=== PATIENT | female | born 1990 | race African-American/Black ===

== ENCOUNTER 2017-03-12 14:17 | Emergency (ER) | payer OTHER ==
[2017-03-12 14:36] VITALS: BP 110/64; PULSE 65; TEMP 97.6; BMI 24.0
--- NOTE | 2017-03-12 14:40 | PDOC ---
History of Present Illness <Dago Sirera - Last Filed: 03/12/17 14:41> - General History Source: Patient Exam Limitations: No Limitations - History of Present Illness Initial Comments: 03/12/17 15:05 Patient is a 26 year old female with a significant past medical with polysubstance abuse who presents to the ED via EMS found unresponsive and hypoglycemic to BGM of 50. Patient was found to have oral glucose as per EMS with improvement of her sypmtoms. Patient was found to be 112 BGM, awake and alert in the ED. Patient states something happened I was just [place] I dont know what happened. Patient reports smoking a joint before. She denies any drug use or medical problems. Patient is walking around the ED talking to herself and noting that she is feeling better and wants to go home because she actually feels fine. pt denies any chest pain, sob, abd pain, n/v, dizziness, headache, neck pain, diarrhea, dysuria, melena, bpr. PCP - Dr Nieves <Aline Rivero - Last Filed: 03/12/17 16:32> - General Chief Complaint: Blood Pressure Problem Stated Complaint: HYPOGLYCEMIA Past History - Past Medical History Suicide Attempt (Hx): No Other medical history: DENIES - Immunization History Immunization Up to Date: Yes - Psycho/Social/Smoking Cessation Hx Anxiety: No Suicidal Ideation: No Smoking Status: No Smoking History: Unknown if ever smoked Have you smoked in the past 12 months: No Number of Cigarettes Smoked Daily: 2 Information on smoking cessation initiated: No 'Breaking Loose' booklet given: 03/03/16 Hx Alcohol Use: No Drug/Substance Use Hx: No Substance Use Type: None Hx Substance Use Treatment: No <Dago Sierra - Last Filed: 03/12/17 14:41> <Aline Rivero - Last Filed: 03/12/17 16:32> - Past Medical History Allergies/Adverse Reactions: Allergies Allergy/AdvReac Type Severity Reaction Status Date / Time No Known Allergies Allergy Verified 07/22/16 16:21 Home Medications: Ambulatory Orders NK [No Known Home Medication] 07/22/16 Review of Systems - Review of Systems Able to Perform ROS?: No Comments:: 03/12/17 15:06 Constitutional - no reported Fever, Chills, weakness, HEENT: no reported vision changes, sore throat Respiratory: no reported cough, sob, hemoptysis Cardiac: no reported chest pain, palpitations, light headedness, leg swelling Abd/GI: no reported abd pain, nausea, vomiting, blood per rectum, melena, diarrhea : no reported dysuria, frequency, discharge Musculskelatal - no reported back pain, joint swelling skin - no reported bruising, erythema, rash neurological: no reported headache, numbness, focal weakness, tingling, ataxia, weakness hematologic: no reported anemia, easy bruising, easy bleeding <Aline Rivero - Last Filed: 03/12/17 16:32> *Physical Exam - Vital Signs Last Vital Signs Temp Pulse Resp BP Pulse Ox 97.6 F 65 20 110/64 100 03/12/17 14:29 03/12/17 14:29 03/12/17 14:29 03/12/17 14:29 03/12/17 14:29 <Dago Sierra - Last Filed: 03/12/17 14:41> - Vital Signs Last Vital Signs Temp Pulse Resp BP Pulse Ox 97.6 F 65 20 110/64 99 03/12/17 14:29 03/12/17 14:56 03/12/17 14:29 03/12/17 14:29 03/12/17 14:56 - Physical Exam Comments: 03/12/17 15:07 GENERAL: The patient is awake, alert, and fully oriented, Nontoxic - in no acute distress. HEAD: Normocephalic, atraumatic. EYES: extraocular movements intact, sclera anicteric, conjunctiva clear. pupils 3mm and symmetrically reactive to light. ENT: Normal voice, Moist mucous membranes. NECK: Normal range of motion, supple LUNGS: Breath sounds equal, clear to auscultation bilaterally. No wheezes, no rhonchi, no rales. HEART: Regular rate and rhythm, normal S1 and S2 without murmur, rub or gallop. ABDOMEN: Soft, nontender, normoactive bowel sounds. No guarding, no rebound. . No CVA tenderness EXTREMITIES: Normal range of motion, no edema. No clubbing or cyanosis. No cords, erythema, or tenderness. NEUROLOGICAL: No facial assymetry, Normal speech, PSYCH: Normal mood, normal affect. SKIN: Warm, Dry, normal turgor <Aline Rivero - Last Filed: 03/12/17 16:32> ED Treatment Course - ADDITIONAL ORDERS Additional order review: Laboratory Results 03/12/17 14:27 POC Glucometer [id number] 03/12/17 14:27 POC Glucometer [id number] <Aline Rivero - Last Filed: 03/12/17 16:32> Medical Decision Making - Medical Decision Making 03/12/17 14:41 pt with hx of substance abuse presents with hypoglycemia - per EMS the pt was found altered, was noted to have BGM of 50, she got some oral glucose with improvement of her mental status. the pt is currently aox3, with normal vitals and unrearkable physcial exam. The pt is ambulatory with a normal gait. i suspect the pt may have used drugs earlier (although the patient denies it and is a bit evasive). the pt declines any workup here. will sign the pt out AMA, the pt is alert/oriented, and responding appropriately repeat bgm is 122 here pt is tolerating oral intake she is a safe discharge. I discussed the physical exam findings, ancillary test results and final diagnoses with the patient. I answered all of the patient's questions. The patient was satisfied with the care received and felt comfortable with the discharge plan and treatment plan. The patient will call their primary care physician within 24 hours to arrange follow-up and will return to the Emergency Department with any new, persistent or worsening symptoms. 03/12/17 14:43 A portion of this note was documented by scribe services under my direction. I have reviewed the details of the note, within reason, and agree with the documentation with the following case summary and management plan written by me <Dago Sierra - Last Filed: 03/12/17 14:41> *DC/Admit/Observation/Transfer - Discharge Dispostion Admit: No <Dago Sierra - Last Filed: 03/12/17 14:41> - Attestations Scribe Attestion: 03/12/17 15:07 Documentation prepared by LIZZ Cooper, acting as director medical for Dago Sierra MD. <Aline Rivero - Last Filed: 03/12/17 16:32> Diagnosis at time of Disposition: Substance abuse - Discharge Dispostion Disposition: HOME Condition at time of disposition: Improved - Referrals Referrals: Byron Nieves [Non Staff, Medical] - - Patient Instructions Printed Discharge Instructions: DI for Drug Abuse and Drug Addiction Additional Instructions: You are leaving against medical advice If you want to return for further evlauation , you can do so at any time. Print Language: GIBRALTARIAN
== END 2017-03-12 15:00 | disposition home or self-care (01) ==
LOC: JER 14:17
DX: E16.1 Other hypoglycemia (principal); F19.10 Other psychoactive substance abuse, uncomplicated
CPT/HCPCS: 99282-25

== ENCOUNTER 2017-11-04 22:33 | Inpatient (IN) | payer OTHER ==
[2017-11-04] MEDS ORDERED: morphine SULFATE/Preservative Free 0.5 MG/ML (1cc Syringe) ONE (23:17)
[2017-11-04 23:28] LABS: BASO % 0.5 % (0-2.0); EOS % 0.9 % (0-4.5); MCH 32.7 pg (25.7-33.7); MCHC 32.9 g/dl (32.0-36.0); MEAN CELL VOLUME 99.4 fl (80-96); MEAN PLT VOLUME 10.8 fl (7.5-11.1); NEUT % 67.5 % (42.8-82.8); PLATELET COUNT 169 K/MM3 (134-434); RDW 14.3 % (11.6-15.6); WHITE BLOOD COUNT 8.5 K/mm3 (4.0-10.0)
[2017-11-04 23:42] LABS: INR 0.91 (0.82-1.09); PROTHROMBIN TIME (PATIENT) 10.3 SEC (9.98-11.88)
[2017-11-04 23:45] LABS: ACTIVATED PTT 26.4 SECONDS (26.9-34.4)
[2017-11-04 23:55] LABS: ALBUMIN 2.3 g/dl (3.4-5.0); ANION GAP 12 (8-16); CALCIUM 8.4 mg/dL (8.5-10.1); CO2 21 mmol/L (21-32); CREATININE 0.6 mg/dL (0.55-1.02); GLUCOSE,RANDOM 115 mg/dL (74-106); SGOT/AST 20 U/L (15-37); SGPT/ALT 16 U/L (12-78)
[2017-11-04 23:57] LABS: ALK PHOS 167 U/L (45-117); BILIRUBIN,TOTAL 0.4 mg/dL (0.2-1.0); TOT PROT 5.9 g/dl (6.4-8.2)
[2017-11-05 00:01] LABS: URINE APPEARANCE CLOUDY; URINE BILIRUBIN NEGATIVE (NEGATIVE); URINE BLOOD 3+ (NEGATIVE); URINE COLOR DKYELLOW; URINE GLUCOSE (UA) 1+ (NEGATIVE); URINE KETONE TRACE (NEGATIVE); URINE NITRITE NEGATIVE (NEGATIVE); URINE UROBILINOGEN NEGATIVE mg/dL (0.2-1.0)
[2017-11-05 00:02] LABS: URINE LEUK ESTERASE 2+ (NEGATIVE); URINE PROTEIN 2+ (NEGATIVE)
[2017-11-05 00:10] LABS: URINE BACTERIA FEW /hpf (NONE SEEN); URINE HYALINE CAST 11 /lpf; URINE MUCUS MANY; URINE RBC 909 /hpf (0-3); URINE WBC 487 /hpf (3-5)
[2017-11-05] MEDS ORDERED: ONDANSETRON 4 MG/2 ML VIAL IVPUSH PRN (00:12)
[2017-11-05 00:20] LABS: HIV 1 & 2 AB NEGATIVE; HIV 1 AGp24 NEGATIVE
[2017-11-05] MEDS ORDERED: ceFAZolin SODIUM 1 GM VIAL ONE (00:25)
[2017-11-05 00:40] LABS: URINE MARIJUANA THC NEGATIVE ng/ml (CUTOFF=50)
[2017-11-05 01:10] LABS: ARTERIAL BLOOD GAS BASE EXCESS -5.5 meq/l (-2-2); ARTERIAL BLOOD GAS HCO3 23.3 meq/L (22-26)
[2017-11-05 01:14] LABS: ARTERIAL BLOOD GAS pH 7.19 (7.35-7.45)
[2017-11-05 01:15] LABS: ARTERIAL BLD GAS O2 SATURATION 35.9 % (90-98.9); ARTERIAL BLOOD GAS PO2 19.4 mmHg (80-100)
[2017-11-05 01:16] LABS: VENOUS BLOOD GAS HCO3 24.4 meq/L (19-25); VENOUS PH 7.32 (7.32-7.42)
--- NOTE | 2017-11-05 01:16 | HP ---
Past Medical History - Admission Chief Complaint: abdominal pain History of Present Illness: 26yo LMP 11/20/17 by horacio done here on 10/07/2017 brought in by ambulance with pain and vaginal bleeding. Pt reports care at [facility], but has scant to no care. Lives in skilled nursing and does not have a stable location. Pt reports that she did k2 this evening and crack/cocaine this morning. 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) Cardiovascular: No: AFIB, Aneurysm, Aortic Insufficiency, Aortic Stenosis, CAD, CHF, Deep Vein Thrombosis, HTN, Hyperlipdemia, [place], Mitral Insufficiency, Mitral Stenosis, Murmur, Pulmonary Hypertension, Other Pulmonary: No: Asthma, Bronchitis, Cancer, COPD, O2 Dependent, Pneumonia, Previously Intubated, Pulmonary Embolus, Pulmonary Fibrosis, Sleep Apnea, Other Gastrointestinal: No: Ascites, Cancer, Constipation, Crohn's Disease, Diverticulitis, Diverticulosis, Esophageal Varices, Gastritis, GERD, GI Bleed, Hemorrhoids, Hiatal Hernia, Inflamatory Bowel Disease, Irritable Bowel Disease, Pancreatitis, Peptic Ulcer Disease, Ulcerative Colitis, Other Reproductive: No: Ectopic , Endometriosis, Fibroids, PID, Polycystic Ovary Syndrome, Postmenopausal, Other ...: 3 ...Para: 2 ...Term: 2 ...: 0 ...Spon : 0 ...Induced : 0 ...Multiple Gestation: 0 ... Weeks Gestation by Dates: 37.5 Additional OB History: previous c/s x 2 Psych: Yes: Addictions - Past Surgical History Past Surgical History: Yes: (04/09/2015) Hx Myomectomy: No Hx Transabdominal Cerclage: No - Smoking History Smoking history: Current some day smoker Have you smoked in the past 12 months: No Aproximately how many cigarettes per day: 2 - Alcohol/Substance Use Hx Alcohol Use: No History of Substance Use: reports: Cocaine, Marijuana (synthetic) Date of Last Use: 11/04/17 - Social History Usual Living Arrangement: Yes: Other Home Medications - Allergies Allergies/Adverse Reactions: Allergies Allergy/AdvReac Type Severity Reaction Status Date / Time No Known Allergies Allergy Verified 07/22/16 16:21 - Home Medications Home Medications: Ambulatory Orders NK [No Known Home Medication] 07/22/16 Family Disease History - Family Disease History Family History: Unable to Obtain Review of Systems - Review of Systems Constitutional: reports: No Symptoms Eyes: reports: No Symptoms HENT: reports: No Symptoms Gastrointestinal: reports: Abdominal Pain Genitourinary: reports: Vaginal Bleeding Physical Exam - Maternity Constitutional: Yes: Well Nourished, No Distress, Calm Eyes: Yes: WNL, Conjunctiva Clear, EOM Intact HENT: Yes: WNL, Atraumatic, Normocephalic Neck: Yes: WNL, Supple, Trachea Midline Cardiovascular: Yes: WNL, Regular Rate and Rhythm - Abdominal Exam/OB Fundal Height: 36 Number of Fetuses: Single Presentation: Vertex Contractions: Yes Regularity: Regular Intensity: Mod/Strong Monitor Mode: External Heart Rate (range): 150 Heart Rate Location: [facility] Category: II Accelerations: None Decelerations: Variable - Vaginal Exam/OB Vaginal Bleediing: Yes Dilatation (cm): 10 Effacement (%): 100 Amniotic Membrane Status: Intact (AROM; copious amount of clear fluid;) Presentation: Vertex/Position Station: -2 - Physical Exam Musculoskeletal: Yes: WNL Extremities: Yes: WNL Integumentary: Yes: WNL - Labs Lab Results: CBC, BMP 11/04/17 23:06 11/04/17 23:06 Hemorrhage Risk Assessment - Risk Factors Medium Risk Factors: Yes: Prior , uterine surgery,or multiple laparotomies High Risk Factors: Yes: Active bleeding on admission Risk Score: 3 Risk Level: High Risk Problem List - Problems (1) Vaginal bleeding in Assessment/Plan: 26yo at 37.5 weeks with vaginal bleeding, active labor. Previous c/s x2. AROM performed. Attempted to have patient push a few times with no success. Decided to proceed with repeat c/s. risks or procedure including but not limited to bleeding, infection, damage to surrounding tissue, need for transfusion, need for hysterectomy. Consent signed. admit to L&D type and cross x 2 units plan for rpt c/s social work consultation; +drug use. Code(s): O46.90 - ANTEPARTUM HEMORRHAGE, UNSPECIFIED, UNSPECIFIED TRIMESTER
--- NOTE | 2017-11-05 01:26 | DS ---
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
--- NOTE | 2017-11-05 01:33 | OP ---
Operative Note - Note: Operative Date: 11/05/17 Pre-Operative Diagnosis: 2 previous c/s in labor; remote from delivery Operation: repeat c/s Findings: viable male infant APGARS 9, 9; placental abruption; uterine window, questionable uterine rupture Post-Operative Diagnosis: Other (repeat c/s; placental abruption, possible uterine rupture) Surgeon: Jolanta Isabel Plant Changer: Ra Baldwin Anesthesiologist/RAILROAD COOK: Jeff Figueredo Anesthesia: Spinal Specimens Removed: placenta Estimated Blood Loss (mls): 800 Operative Report Dictated: Yes
[2017-11-05] MEDS ORDERED: IBUPROFEN 600 MG TABLET (FP) PO PRN (01:37)
[2017-11-05] MEDS ORDERED: IBUPROFEN 800 MG/8 ML IJ IVPB PRN (01:37)
[2017-11-05] MEDS ORDERED: METHYLERGONOVINE MALEATE 0.2 MG/1 ML AMP IM PRN (01:37)
[2017-11-05] MEDS ORDERED: OXYTOCIN 20 UNITS in 0.9% NS 20 UNIT/1,000 ML INFUS.BAG IV ONE (01:38)
[2017-11-05 01:40] LABS: BASO % 0.8 % (0-2.0); EOS % 0.4 % (0-4.5); MEAN CELL VOLUME 99.9 fl (80-96); MEAN PLT VOLUME 10.7 fl (7.5-11.1); NEUT % 76.3 % (42.8-82.8); PLATELET COUNT 190 K/MM3 (134-434); RDW 14.6 % (11.6-15.6); WHITE BLOOD COUNT 8.9 K/mm3 (4.0-10.0)
[2017-11-05 01:48] LABS: INR 0.88 (0.82-1.09); PROTHROMBIN TIME (PATIENT) 9.9 SEC (9.98-11.88)
[2017-11-05 01:50] LABS: ACTIVATED PTT 28.4 SECONDS (26.9-34.4)
[2017-11-05 02:42] VITALS: BMI 26.6
[2017-11-05 02:56] LABS: PLATELET ESTIMATE NORMAL
[2017-11-05 02:59] LABS: PLATELET COMMENTS PRESENT
[2017-11-05] MEDS: OXYTOCIN 20 UNITS in 0.9% NS 20 UNIT/1,000 ML INFUS.BAG IV SCH ×2 (07:30→16:45)
[2017-11-05] MEDS: PRENATAL VITAMINS W/ FOLIC ACID TABLET (FP) PO SCH (09:47)
[2017-11-05] MEDS: FERROUS SO4 325 MG TABLET (FP) PO SCH ×2 (09:47→22:48)
[2017-11-05 13:12] LABS: URINE LEUK ESTERASE TRACE (NEGATIVE)
--- NOTE | 2017-11-05 13:18 | PN ---
Mental Health Exam - Mental Status Exam Alert and Oriented to: Time, Place, Person Cognitive Function: Impaired (delated in response. ) Patient Appearance: Unkempt, Disheveled (unkempt) Mood: Apathetic, Hopeful (where will i live with baby?, ) Affect: Appropriate Patient Behavior: Dependent, Cooperative Speech Pattern: Clear, Delayed (mild) Voice Loudness: Mildly Soft/Quiet Thought Process: Intact Thought Disorder: Not Present Hallucinations: None Suicidal Ideation: None Homicidal Ideation: None Insight/Judgement: Fair Sleep: Well Appetite: Good (eating all lunch as contract writer interviewed her. ) Muscle strength/Tone: Normal Gait/Station: Deferred
--- NOTE | 2017-11-05 13:27 | PN ---
Progress Note, Physician Chief Complaint: "when can i go home". - Current Medication List Current Medications: Active Medications Acetaminophen (Tylenol -) 650 mg PO Q4H PRN PRN Reason: FEVER OR PAIN Bisacodyl (Dulcolax Suppository -) 10 mg RC PRN PRN PRN Reason: CONSTIPATION Diphenhydramine HCl (Benadryl Injection -) 25 mg IVPUSH Q4H PRN PRN Reason: Pruritis Last Admin: 11/05/17 09:56 Dose: 25 mg Ferrous Sulfate (Feosol -) 325 mg PO BID [facility] Last Admin: 11/05/17 09:47 Dose: Not Given Oxytocin/Sodium Chloride (Normal Saline+20 Units Oxytocin -) 20 unit in 1,000 mls @ 125 mls/hr IV ASDIR [facility] Last Admin: 11/05/17 07:30 Dose: 125 mls/hr Ibuprofen (Motrin -) 600 mg PO Q4H PRN PRN Reason: PAIN Ibuprofen (Caldolor Injection -) 800 mg IVPB Q8H PRN PRN Reason: PAIN OR FEVER Last Admin: 11/05/17 10:01 Dose: 800 mg Methylergonovine Maleate (Methergine Injection -) 0.2 mg IM Q4H PRN PRN Reason: Excessive Bleeding (L&D) Ondansetron HCl (Zofran Injection) 4 mg IVPUSH Q4H PRN PRN Reason: NAUSEA Oxycodone HCl (Roxicodone -) 5 mg PO Q4H PRN PRN Reason: PAIN LEVEL 1-5 Multivit/Folic Acid/Iron ( Vitamins (Sjr) -) 1 tab PO DAILY [facility] Last Admin: 11/05/17 09:47 Dose: Not Given Simethicone (Mylicon -) 80 mg PO Q4H PRN PRN Reason: GAS - Objective Vital Signs: Vital Signs Temperature 98.9 F 11/05/17 13:00 Pulse Rate 73 11/05/17 08:10 Respiratory Rate 20 11/05/17 13:00 Blood Pressure 135/77 11/05/17 08:10 O2 Sat by Pulse Oximetry (%) 99 11/05/17 02:55 Labs: CBC, BMP 11/05/17 00:29 11/04/17 23:06 INR, PTT INR 0.88 (0.82-1.09) 11/05/17 00:29 Problem List - Problems (1) Drug abuse and dependence Code(s): F19.20 - OTHER PSYCHOACTIVE SUBSTANCE DEPENDENCE, UNCOMPLICATED Assessment/Plan client is 24 yo AA female has a c section last pm at 12.30 pm with spinal analgesia, last 16 hr per rn. Client is co-operative pleasant in room, interacts with business writer as she ate. Client stated "i was living at [facility] [address] [facility] when i got severe pains ( labor pains)." Client denies psych history or admissions. Recieved benadry last pm iv. No si Hi AH or VH. POS for cocaine and thenalylaline, K2? also. Denies Rehabs in past. Possible intellectual impaired , but stated she has some college, Cognitive decline? Stated her MOM is at [place], she is one of 6 sisters and 2 brothers. She wanted to know what her "living arrangement after DC". Acs came to see patient who is familar with her from previous births. Plan; Continue supportive care Encourage rehab, referral to substance clinic Social service consult recomended.. Review past medical/PSYCHES if possible. Report to both RN on floor. Contonue current meds. Thanks for consult.
--- NOTE | 2017-11-05 15:59 | PN ---
Progress Note (short form) - Note Progress Note: POD #1 - s/p repeat under spinal anesthesia with duramorph. VSS. Pt. doing well, resting comfortably in bed. No complaints. Good pain control. No apparent anesthetic complications noted. Continue current care.
[2017-11-06] MEDS: oxyCODONE HCL 5 MG TABLET PO PRN ×4 (00:54→22:14)
[2017-11-06] MEDS: SIMETHICONE 80 MG TAB.CHEW (FP) PO PRN ×4 (00:54→22:13)
[2017-11-06] MEDS: ACETAMINOPHEN 325 MG TABLET (FP) PO PRN ×4 (00:55→22:15)
[2017-11-06] MEDS ORDERED: BISACODYL 10 MG SUPP.RECT RC PRN (01:37)
[2017-11-06 08:05] LABS: BASO % 0.5 % (0-2.0); EOS % 0.8 % (0-4.5); MCH 32.9 pg (25.7-33.7); MCHC 32.8 g/dl (32.0-36.0); MEAN CELL VOLUME 100.3 fl (80-96); MEAN PLT VOLUME 10.3 fl (7.5-11.1); NEUT % 70.3 % (42.8-82.8); PLATELET COUNT 151 K/MM3 (134-434); RDW 14.7 % (11.6-15.6); WHITE BLOOD COUNT 9.4 K/mm3 (4.0-10.0)
[2017-11-06] MEDS: FERROUS SO4 325 MG TABLET (FP) PO SCH ×2 (10:11→22:13)
[2017-11-06] MEDS: PRENATAL VITAMINS W/ FOLIC ACID TABLET (FP) PO SCH (10:11)
[2017-11-06] MEDS: IBUPROFEN 600 MG TABLET (FP) PO PRN ×2 (13:37→22:14)
[2017-11-06] MEDS ORDERED: diphenhydrAMINE HCL 25 MG CAPSULE (FP) PO PRN (14:57)
[2017-11-06] MEDS: diphenhydrAMINE HCL 25 MG CAPSULE (FP) PO PRN (15:18)
--- NOTE | 2017-11-06 20:12 | PN ---
Progress Note (short form) - Note Progress Note: Called back by RN May Rudolph for client who was anxious for discharge earlier today. Patient is currently calm sleeping in her room. May use benadryl po prn as needed for itching/ anxious. Client is homless and will need SW assistance upon discharge, reconnect with services in the community. Problem List - Problems (1) Drug abuse and dependence Code(s): F19.20 - OTHER PSYCHOACTIVE SUBSTANCE DEPENDENCE, UNCOMPLICATED
--- NOTE | 2017-11-06 20:44 | OP ---
DATE OF OPERATION: 11/05/2017 PREOPERATIVE DIAGNOSIS: Previous section, in active labor, fully dilated. POSTOPERATIVE DIAGNOSIS: Previous section, in active labor, fully dilated, placental abruption, questionable uterine rupture. FINDINGS: Patient fully dilated. Clear amniotic fluid on rupture, approximately 500 to 600 mL of clot and blood in the abdominal wall. A window was noted on the uterus. No clear rupture site seen, although clots in the anterior uterine wall. SURGEON: Jolanta Isabel MD FAMILY COURT REGISTRAR: Ra Baldwin MD ANESTHESIA: Spinal, Dr. Araceli Hidalgo ESTIMATED BLOOD LOSS: 800 mL. FINDINGS: Viable male , Apgars 9 and 9, placental abruption, about 500 mL of hemoperitoneum. DESCRIPTION: After informed consent was obtained, the patient was taken to the operating room, where the anesthesia was induced and found to be adequate. The patient was placed in supine position with a leftward tilt. A Pfannenstiel skin incision was made with the scalpel and carried down to the underlying layer of fascia with the scalpel. The fascia was incised in the midline and the incision was extended laterally using the Bovie. The anterior portion of the fascial incision was grasped with a Sly clamp, tented up, and the underlying rectus muscle was dissected off using sharp dissection with a knife and then the Petty scissors. Attention was then turned to the inferior portion of the fascial incision, which in a similar fashion was clamped, tented up, and dissected off. The muscle was in the midline and the peritoneal cavity was entered sharply and the incision was extended superiorly and inferiorly with good visualization of the bladder. The bladder blade was inserted. At this point, port wine blood was noted in the abdominal cavity and a large clot was noted anterior to the uterus. The uterus was inspected and a window was noted but no clear rupture point. An incision was made with the scalpel and the incision extended laterally bluntly. The was then attempted to deliver. However, it could not be easily delivered through the incision, so using the aid of the vacuum, vacuum was applied and the infant was then delivered without difficulty. The placenta was removed. The umbilical cord was clamped and cut, cord gases were obtained. The baby was handed to the awaiting pediatricians. The placenta was removed and the uterus was cleared of clot and debris. The uterine incision was then repaired with 0 Biosyn in a running locked fashion, with excellent hemostasis. The gutters were cleared of clot and debris. The peritoneum was then closed with 2-0 Vicryl in a running fashion. The fascia was closed with 0 Vicryl in a running fashion, and the skin was closed with 3-0 Vicryl on a Js needle in a subcuticular fashion. The patient tolerated the procedure well and was taken to the recovery room in stable condition. Sponge, lap, and needle count were correct. Kisha [id number]
[2017-11-07] MEDS: diphenhydrAMINE HCL 25 MG CAPSULE (FP) PO PRN ×2 (00:11→13:56)
--- NOTE | 2017-11-07 08:34 | PN ---
Progress Note (short form) - Note Progress Note: pod afebrile, c/o mild cramps, CBC, BMP 11/06/17 06:00 11/04/17 23:06 Last Vital Signs Temp Pulse Resp BP Pulse Ox 98.4 F 65 20 136/86 99 11/06/17 22:00 11/06/17 22:00 11/06/17 22:00 11/06/17 22:00 11/05/17 02:55 abdomen soft, no distension, no cva incision dry, clean no calf tenderness plan ambulate, pain mamnagement , psych follow up
[2017-11-07] MEDS: FERROUS SO4 325 MG TABLET (FP) PO SCH ×2 (09:15→23:26)
[2017-11-07] MEDS: PRENATAL VITAMINS W/ FOLIC ACID TABLET (FP) PO SCH (09:15)
[2017-11-07] MEDS: IBUPROFEN 600 MG TABLET (FP) PO PRN (13:55)
[2017-11-07] MEDS: ACETAMINOPHEN 325 MG TABLET (FP) PO PRN (13:55)
[2017-11-07] MEDS: SIMETHICONE 80 MG TAB.CHEW (FP) PO PRN (13:55)
--- NOTE | 2017-11-07 19:51 | PN ---
Progress Note (short form) - Note Progress Note: Called back by RN May Rudolph for client who was anxious for discharge earlier today. Patient is currently calm sleeping in her room. May use benadryl po prn as needed for itching/ anxious. Client is homless and will need SW assistance upon discharge, reconnect with services in the community. 11/07/2017 Called by Ms Robles to see patient. She is aloof in speech, but was tear ful when stated, want to see baby at 8pm today. Insight and judgment is limited, she is aware her baby is 2 days old, but will like to read her a book, is not . client dishevelled appearance. Client stated that she is interested in rehab as it may help get her baby back. She stated "i will like my baby to go to my relative or an elderly back lady as she will get best activity ". Client odd and bizarre, still poor eye contact. She endorsed that she voluntary admit herself to [facility] in the past as she was , tired of being on the street and using drugs. Problem List - Problems (1) Drug abuse and dependence Code(s): F19.20 - OTHER PSYCHOACTIVE SUBSTANCE DEPENDENCE, UNCOMPLICATED
--- NOTE | 2017-11-08 09:53 | CONSULT ---
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) Cardio/Vascular: No: AFIB, Aneurysm, Aortic Insufficiency, Aortic Stenosis, CAD , CHF, Deep Vein Thrombosis, HTN, Hyperlipdemia, [place], Mitral Insufficiency, Mitral Stenosis, Murmur, Pulmonary Hypertension, Other Pulmonary: No: Asthma, Bronchitis, Cancer, COPD, O2 Dependent, Pneumonia, Previously Intubated, Pulmonary Embolus, Pulmonary Fibrosis, Sleep Apnea, Other Gastrointestinal: No: Ascites, Cancer, Constipation, Crohn's Disease, Diverticulitis, Diverticulosis, Esophageal Varices, Gastritis, GERD, GI Bleed, Hemorrhoids, Hiatal Hernia, Inflamatory Bowel Disease, Irritable Bowel Disease, Pancreatitis, Peptic Ulcer Disease, Ulcerative Colitis, Other ...LMP: 05/27/14 Psych: Yes: Addictions - Past Surgical History Past Surgical History: Yes: (04/09/2015) - Significant Medical Findings: 26 YO F S/P DELIVERY FULL TERM INFANT LIGHT FOR DATES, REPORTEDLY HYPERACTIVE ALERT AND ORIENTED REPORTING POLYSBUSTANCE USE CRACK COCAINE, pcp AND K2 DURING NOSIGNS OR SYMPTOMS OF IWTHDRWAL, DENIES ALCOHOL OR HEROIN USE. Assessment Plan - Diagnosis (1) Crack cocaine use Status: Acute (2) Liveborn as result of Status: Acute (3) Drug abuse and dependence Status: Acute (4) Marihuana abuse Status: Acute Comment: I DISCUSSED AT LENGHT THE EFFECT OF DRUG USE ON HER . I SUGGESTED THAT PT. ATTENDS INTENSIVE OUT-PT. AT [facility], [facility] ESTES ON THE SAME FLOOR PRE- CLINIC. PT. MIGHT BE PLACED AT THE [facility] BY TEAM AUTOMOBILE ASSEMBLER.IF SO,SHE WILL ATTEND GROUPS THERE. (5) PCP (phencyclidine) abuse Status: Acute - Plan Plan: 26 YO F WITH H/O POLYSUBSTANCE USE AND 2 CHILDREN NOW IN [facility]ER CARE IN [facility] S/P LIVE OF FULL TERM INFANT, LIGHT FOR DATES, IRRITABLE, LEAVING HOSPITAL. UTOX +VE PCP, COCAINE WHICH SHE ADMITS USING DURING AND MAY HAVE PRECIPITATED LABOR. DENIES PSYCHIATRIC HISTROY, NO SUICIDAL IDEATION, CLEARED BY PSYCH, INAPPRORATE AFFECT, APPORACHABLE AND FRIENDLY AGREES TO FOLLOW UP CARE FOR SUBSTANCE USE AND SUPPORT TO GET HER [facility] BACK [facility] SHE HAS BEEN [place] BEFORE. cASE REPROTED TO CHILD PROTECTIVE SERVICES IN [facility] HER TWO OLDER CHILDREN LIVE IN [facility]. nO EVIDENCE OF WITHDRAWAL OR NEED FOR MEDICATION ASSISTED TREATMENT AT THIS TIME. Discussed care with her treatment team. chart reveiwed, imaging reviewed, labs reviewed, kishan discussed, patient richard and examined. Melvin Lou md [phone] - Medication Detox Regimen/Protocol: Not Applicable
[2017-11-08 09:58] LABS: BASO % 0.5 % (0-2.0); EOS % 1.2 % (0-4.5); MCH 32.5 pg (25.7-33.7); MCHC 32.5 g/dl (32.0-36.0); MEAN PLT VOLUME 10.2 fl (7.5-11.1); NEUT % 71.7 % (42.8-82.8); PLATELET COUNT 193 K/MM3 (134-434); RDW 14.5 % (11.6-15.6); WHITE BLOOD COUNT 7.4 K/mm3 (4.0-10.0)
[2017-11-08 11:27] VITALS: BP 144/91; PULSE 72; TEMP 98.9
[2017-11-08] MEDS: PRENATAL VITAMINS W/ FOLIC ACID TABLET (FP) PO SCH (11:47)
[2017-11-08] MEDS: FERROUS SO4 325 MG TABLET (FP) PO SCH (11:48)
--- NOTE | 2017-11-08 11:57 | DS ---
Physical Exam-DEPARTMENT CLINICIAN Vital Signs: Vital Signs Temperature 98.9 F 11/08/17 10:00 Pulse Rate 72 11/08/17 10:00 Respiratory Rate 20 11/08/17 10:00 Blood Pressure 144/91 11/08/17 10:00 O2 Sat by Pulse Oximetry (%) 99 11/05/17 02:55 Constitutional: Yes: Well Nourished Eyes: Yes: Conjunctiva Clear HENT: Yes: Atraumatic Neck: Yes: Supple Cardiovascular: Yes: Regular Rate and Rhythm Respiratory: Yes: Regular Gastrointestinal: Yes: Normal Bowel Sounds Vaginal Exam: Yes: Normal Cervix: Yes: Normal Wound/Incision: Yes: Well Approximated, Sutures Intact Psychiatric: Yes: Other (Mental status impaired with drug use) Labs: CBC, BMP 11/08/17 09:15 11/04/17 23:06 Delivery - Delivery Section: Repeat Type of Anesthesia: Spinal Episiotomy/Laceration: None EBL (cc): 800 Delivery, Single - Stages of Labor Date 1st Stage Initiatied: 11/04/17 Time 1st Stage Initiated: 20:00 Date 2nd Stage Initiated: 11/04/17 Time 2nd Stage Initiated: 23:30 Date of Delivery: 11/05/17 Time of Delivery: 00:25 Time Placenta Delivered: 00:26 Placenta: Yes: Spontaneous - Condition of Optometry Teacher/Rope Maker Present: Yes Name: Chantelle Faith Infant Gender: Male Weight: 5 lb 7 oz Position: Right, OA Total Hours ROM (Hrs/Mins): 55 MINUTES - 1 Minute Total Score: 9 5 Minutes Total Score: 9 - Feeding Plan Initial Plan: Elected not to breastfeed exclusively throughout hospitalization Discharge Summary Reason For Visit: LABOR ADMIT Procedures: Principal: Repeat Low transverse Hospital Course: Patient is a drug user who happens to be homeless. She's status post . Psychiatrist was consulted. On third day patient requested to be discharge. No blood transfusion required. Condition: Fair - Instructions Diet, Activity, Other Instructions: Regular diet No lifting x 2 weeks F/U with MD in 2 weeks Depoprovera injection at [facility] Disposition: HOME - Home Medications Comprehensive Discharge Medication List: Ambulatory Orders Acetaminophen [Tylenol -] 500 mg PO Q4H #100 tablet 11/08/17 Ibuprofen [Motrin -] 600 mg PO Q4H PRN #60 tablet 11/08/17
--- NOTE | 2017-11-09 17:54 | PATH ---
Surgical Pathology Report Patient Name: NINI PEREIRA [facility]. Rec. #: [id number] /Age/Gender: 1990 (Age: 26) / F Account: [id number] Location: [facility] OBS/ROADWAY ENGINEER Taken: 11/07/2017 Received: 11/07/2017 Reported: 11/09/2017 Physicians: Jolanta Isabel M.D. Specimen(s) Received PLACENTA Clinical History 26-year-old female previous with both children Patient had positive toxicology Final Diagnosis PLACENTA, SECTION: 484 g THIRD TRIMESTER PLACENTA WITH TRIVASCULAR UMBILICAL CORD AND UNREMARKABLE PLACENTAL MEMBRANES. Electronically Signed Dedra Ordonez M.D. Gross Description The specimen is received fresh labeled placenta and is a 484 gram, 19.0 x 16.0 x 2.6 cm. placenta with attached membranes and umbilical cord. The attached membranes are blackwell, translucent with focal opacities and insert marginally. The umbilical cord measures 18 cm. in length and averages 1 cm. in diameter. The cord inserts centrally. No true knots or strictures are identified. Cut surface of the umbilical cord reveals 3 vessels. The surface is irwin-blue with minimal fibrin deposition and appropriate caliber vessels. The maternal surface is red-brown with focal defects. Sectioning reveals red-brown, spongy parenchyma. No lesions are identified. Flame Cutting Machine Operator sections are submitted in three cassettes as follows: 1- membrane rolls and umbilical cord; 2-3- full thickness sections of placenta. 11/08/2017 [facility]11/08/2017
== END 2017-11-08 12:15 | disposition home or self-care (01) | DRG 540 ==
LOC: JLDR 22:33 → J3W 11-05 03:30
PROVIDERS: ADMIT Obstetrics & Gynecology; ATTEND Obstetrics & Gynecology
PROC: 10D00Z1 Extraction of Products of Conception, Low, Open Approach (ICD-10-PCS; principal; 2017-11-05)
DX: O34.219 Maternal care for unspecified type scar from previous cesarean delivery (principal); O99.324 Drug use complicating childbirth; F19.10 Other psychoactive substance abuse, uncomplicated; F14.90 Cocaine use, unspecified, uncomplicated; Z3A.37 37 weeks gestation of pregnancy; Z37.0 Single live birth; Z59.0 Homelessness
CPT/HCPCS: 36415; 36600; 71020-TC; 80053; 80307; 81003; 81015; 82803; 85025; 85610; 85730; 86593; 86762; 86850; 86900; 86901; 87340; 87389; 88307-TC

== ENCOUNTER → 2017-11-09 | Emergency (ER) | payer OTHER ==
[2017-11-09 23:46] VITALS: BP 149/92; PULSE 58; TEMP 98.3; BMI 25.7
--- NOTE | 2017-11-23 13:25 | EKG ---
Test Reason : Blood Pressure : / mmHG Vent. Rate : 063 BPM Atrial Rate : 063 BPM P-R Int : 114 ms QRS Dur : 084 ms QT Int : 358 ms P-R-T Axes : -26 050 041 degrees QTc Int : 366 ms NORMAL SINUS RHYTHM SEPTAL INFARCT , AGE UNDETERMINED ABNORMAL ECG WHEN COMPARED WITH ECG OF 22-JUL-2016 16:22, NO SIGNIFICANT CHANGE WAS FOUND Confirmed by ANNA OAKLEY MD ([id number]) on 11/23/2017 1:25:09 PM Referred By: Confirmed By:ANNA OAKLEY MD
== END | disposition left against medical advice (07) ==
LOC: JER 23:26
DX: Z53.21 Procedure and treatment not carried out due to patient leaving prior to being seen by health care provider (principal)
CPT/HCPCS: 93005; 93010; 99281-25

== ENCOUNTER → 2018-10-20 | Emergency (ER) | payer OTHER ==
[~2018-10-20] MED LIST: CEFTRIAXONE 1 GM in DEXTROSE 5%-WATER - 100 ML IVPB ONE; CEFTRIAXONE 1 GM/50 ML BAG ONE; SODIUM CHLORIDE 0.9% 1000 ML INFUS.BAG IV ONE
--- NOTE | 2018-10-20 09:13 | PDOC ---
History of Present Illness - General Chief Complaint: Syncope/Near Syncope Stated Complaint: Altered Mental Status Time Seen by Provider: 10/20/18 09:00 - History of Present Illness Initial Comments: 10/20/18 09:06 The patient is a 27 year old female with a history of polysubstance abuse who presents via EMS for a syncopal episode. The patient reports that she was out collecting bottles when she passed out. A bystander found her on the sidewalk unresponsive and called EMS. On EMS arrival, they report that the patient was hypotensive to 70s systolic. They noted that she became responsive after initiating fluids on her. Her BG on scene was 72. They patient does not have any complaints at this time and notes that she feels fine. She otherwise denies fevers, chills, SOB, chest pain, nausea, vomiting, abdominal pain, or changes with urination or bowel movements. She denies any drug use currently. Past History - Past Medical History Allergies/Adverse Reactions: Allergies Allergy/AdvReac Type Severity Reaction Status Date / Time No Known Allergies Allergy Verified 10/20/18 09:18 Home Medications: Ambulatory Orders Cephalexin Monohydrate [Keflex -] 500 mg PO BID #14 capsule 10/20/18 Asthma: No Cancer: No Cardiac Disorders: No COPD: No Diabetes: No HTN: No Seizures: No Thyroid Disease: No - Immunization History Immunization Up to Date: Yes - Suicide/Smoking/Psychosocial Hx Smoking Status: No Smoking History: Never smoked Have you smoked in the past 12 months: No Number of Cigarettes Smoked Daily: 2 'Breaking Loose' booklet given: 03/03/16 Hx Alcohol Use: No Drug/Substance Use Hx: No Substance Use Type: None Hx Substance Use Treatment: Yes (nEW fOCUS) Review of Systems - Review of Systems Comments:: 10/20/18 09:18 Constitutional: No fevers, chills, fatigue, malaise HEENT: No Rhinorrhea, nasal congestion, visual changes Cardiovascular: Syncope. No chest pain, palpitations, lightheadedness Respiratory: No Cough, SOB, Hemoptysis, Gastrointestinal: No Abdominal pain, Nausea, Vomiting, Constipation, Diarrhea, Melena Genitourinary: No Dysuria, Frequency, Urgency, Hesitancy, Hematuria, Flank pain Musculoskeletal: No Myalgia, arthralgia Skin: No rashes, itching, bruising, pallor Neurologic: No Headache, Dizziness, Numbness, Weakness, or Tingling Psychiatric: No Hallucinations. No SI or HI *Physical Exam - Physical Exam Comments: 10/20/18 09:19 General Appearance: Nourished. No Apparent Distress HEENT: EOMI, FAROOQ. No Pharyngeal Erythema, Tonsillar Exudate, Tonsillar Erythema Neck: No Cervical Lymphadenopathy Respiratory/Chest: Lungs Clear, Normal Breath Sounds. No Crackles, Rales, Rhonchi, Wheezing Cardiovascular: Regular Rhythm, Regular Rate. No Murmur, Gallops, Rubs Gastrointestinal/Abdominal: Normal Bowel Sounds, Soft. No Guarding, Rebound, Tenderness Musculoskeletal: No CVA Tenderness Extremity: Normal Capillary Refill Integumentary: Normal Color, Dry, Warm Neurologic: transfer worker II-XII NML intact, Fully Oriented, Alert, Normal Mood/Affect, Normal Response, Motor Strength 5/5. ED Treatment Course - LABORATORY CBC & Chemistry Diagram: 10/20/18 09:30 10/20/18 09:30 - RADIOLOGY Radiology Studies Ordered: Category Date Time Status CHEST X-RAY PORTABLE* [RAD] Stat Radiology 10/20/18 09:05 Ordered Medical Decision Making - Medical Decision Making 10/20/18 09:19 The patient is a 27 year old female with a history of polysubstance abuse who presents via EMS for a syncopal episode. Differential includes but is not limited to: ACS, Arrhythmia, Infectious, Metabolic Derangement. Given the patient's history and physical exam, we will obtain a cbc, cmp, troponin, ua, urine tox, urine preg, chest plain film, ekg to evaluate further. We will treat with iv fluids and continue to monitor and reassess while here in the ED. 10/20/18 10:49 CBC, cmp is unremarkable. UA demonstrates positive leuk esterase and elevated wbc consistent with a UTI. Chest plain film is unremarkable. We believe the patient requires admission for further management given her UTI, hypotension and ekg changes. The patient states that she wishes to leave AMA. We discussed the risks of leaving AMA including but not limited to: , permanent disability, worsening infection and the patient continued to wish to leave AMA. We discussed the benefits of admission and the patient continued to wish to leave ama. We will send keflex to the patient's pharmacy and will have her follow up with cardiology. The patient had her IV removed and she eloped prior to receiving her discharge paper work and further instructions on treatment options and discharge instructions. *DC/Admit/Observation/Transfer Diagnosis at time of Disposition: UTI (urinary tract infection) Qualifiers: Urinary tract infection type: site unspecified Hematuria presence: without hematuria Qualified Code(s): N39.0 - Urinary tract infection, site not specified - Discharge Dispostion Disposition: ELOPED Condition at time of disposition: Stable - Prescriptions Prescriptions: Cephalexin Monohydrate [Keflex -] 500 mg PO BID #14 capsule - Referrals Referrals: Mario Jeter MD [Staff Physician] - - Patient Instructions Printed Discharge Instructions: DI for Urinary Tract Infection (UTI) Additional Instructions: Please return to the ER if you experience concerning or worsening symptoms including worsening difficulty breathing, weakness, or chest pain. Your lab results show that you have a UTI. We have sent a prescription for antibiotics to your pharmcy. Please call to schedule a follow up appointment with your primary care provider and our Client Application Support Specialist within 2-3 days to discuss your ER visit and further management of your symptoms. - Post Discharge Activity
[2018-10-20 09:34] VITALS: BP 127/90; PULSE 93; TEMP 97.3
[2018-10-20 09:43] LABS: BASO % 1.5 % (0-2.0); EOS % 1.8 % (0-4.5); HEMATOCRIT 39.1 % (32.4-45.2); HEMOGLOBIN 13.4 GM/dL (10.7-15.3); LYMPH % 45.8 % (8-40); MCH 34.1 pg (25.7-33.7); MCHC 34.2 g/dl (32.0-36.0); MEAN CELL VOLUME 99.7 fl (80-96); MEAN PLT VOLUME 8.7 fl (7.5-11.1); MONO % 9.1 % (3.8-10.2); NEUT % 41.8 % (42.8-82.8); PLATELET COUNT 254 K/MM3 (134-434); RBC 3.92 M/mm3 (3.60-5.2); RDW 14.2 % (11.6-15.6); WHITE BLOOD COUNT 3.5 K/mm3 (4.0-10.0)
[2018-10-20 10:05] LABS: URINE APPEARANCE SLCLOUDY; URINE BILIRUBIN NEGATIVE (<2.0 mg/dL); URINE COLOR YELLOW; URINE GLUCOSE (UA) NEGATIVE (NEGATIVE); URINE KETONE NEGATIVE (NEGATIVE); URINE LEUK ESTERASE 2+ (NEGATIVE); URINE NITRITE NEGATIVE (NEGATIVE); URINE PROTEIN 1+ (NEGATIVE); URINE UROBILINOGEN NEGATIVE mg/dL (0.2-1.0)
[2018-10-20 10:09] LABS: EPI CELLS FEW /HPF (FEW); URINE HYALINE CAST 5 /lpf; URINE MUCUS FEW; YEAST RARE
--- NOTE | 2018-10-20 10:10 | PDOC ---
Attending Attestation - Resident Resident Name: Go Obrien - ED Attending Attestation I have performed the following: I have examined & evaluated the patient, The case was reviewed & discussed with the resident, I agree w/resident's findings & plan, Exceptions are as noted - HPI HPI: 10/20/18 10:05 27 yo F with no pmhx currently homeless, living in a residential here with syncopal epsiode brief AMS. pt state she was walking to the store. did not eat anything today. denies drug or alcohol use. c/o right heel cracked and draining. foul smell. no f/c no cp no sob. no other comlaints. eMS stated on arrival pt was altered on sidewalk, unresponsive. hypotensive in 70's systolic, glucose 72. started IVF 1L. pt mental status improved. - Physicial Exam PE: 10/20/18 10:08 awake alert lungs clear bilaterally heart rrr no mrg abd soft nt nd. ext wwp no edema. no calf tenderness. skin warm and dry. nuero alert oriented x 3. calm cooperative. speech clear. moves all four ext. gaitsteady. skin bilat heel with cracked dry skin, no exudate. no drainage noted. 10/20/18 10:10 - Medical Decision Making 10/20/18 10:09 27 yo h/o substance abuse here with brief AMS, associated hypoglycemia and hypotension. diferential anemia dehydration intox . dysrhythmmia. EKG obtained pt with short OR interval. labs pending. 10/20/18 10:33 explained to pt she has irregular ekg, and urinary tract infeciton. concerns for overwhelming infection due to low blood pressure. pt refusing to stay in hospital. told she should return if she has fever, feels lightheaded or any concerns. Heart Score/ECG Review #1 General ECG Interpretation: Sinus Rhythm (81), Normal Rate, Normal Intervals, No acute ischemic changes Compared to previous ECG there are: Other (short OR upsloaping qrs)
--- NOTE | 2018-10-20 10:11 | EKG ---
Test Reason : Blood Pressure : / mmHG Vent. Rate : 081 BPM Atrial Rate : 081 BPM P-R Int : 098 ms QRS Dur : 082 ms QT Int : 344 ms P-R-T Axes : -23 074 064 degrees QTc Int : 399 ms SINUS RHYTHM WITH SHORT OK ST ELEVATION, CONSIDER EARLY REPOLARIZATION, PERICARDITIS, OR INJURY Confirmed by LAURO WOOD MD ([id number]) on 10/20/2018 10:11:01 AM Referred By: Confirmed By:LAURO WOOD MD
[2018-10-20 10:16] LABS: ALBUMIN 3.5 g/dl (3.4-5.0); ALK PHOS 63 U/L (45-117); ANION GAP 9 MMOL/L (8-16); BILIRUBIN,TOTAL 0.6 mg/dL (0.2-1); BLOOD UREA NITROGEN 13 mg/dL (7-18); CALCIUM 8.5 mg/dL (8.5-10.1); CHLORIDE 108 mmol/L (98-107); CO2 24 mmol/L (21-32); CREATININE 0.7 mg/dL (0.55-1.3); GLUCOSE,RANDOM 59 mg/dL (74-106); SGOT/AST 23 U/L (15-37); SGPT/ALT 36 U/L (13-61); SODIUM 141 mmol/L (136-145); TOT PROT 6.6 g/dl (6.4-8.2)
[2018-10-20 10:39] LABS: METHADONE, UR NEGATIVE ng/ml (CUTOFF=300); OPIATES, URI NEGATIVE ng/ml (CUTOFF=300); URINE AMPHETAMINES NEGATIVE ng/ml (CUTOFF=500); URINE BARBITURATES NEGATIVE ng/ml (CUTOFF=200); URINE BENZODIAZEPINES NEGATIVE ng/ml (CUTOFF=200)
[2018-10-20 11:07] LABS: COCAINE, UR POSITIVE ng/ml (CUTOFF=300); PHENCYCLIDINE,URINE POSITIVE ng/ml (CUTOFF=25)
== END | disposition left against medical advice (07) ==
LOC: JER 08:56
PROC: 3E03329 Introduction of Other Anti-infective into Peripheral Vein, Percutaneous Approach (ICD-10-PCS; principal; 2018-10-20)
PROC: 3E0337Z Introduction of Electrolytic and Water Balance Substance into Peripheral Vein, Percutaneous Approach (ICD-10-PCS; 2018-10-20)
DX: N39.0 Urinary tract infection, site not specified (principal); F19.10 Other psychoactive substance abuse, uncomplicated; Z72.0 Tobacco use
CPT/HCPCS: 36415; 71045-TC-FY; 80053; 80307; 81003; 81015; 82550; 84484; 84703; 85025; 93005; 93010; 99285-25; J7030

== ENCOUNTER 2018-11-06 03:04 | Emergency (ER) | payer SELFPAY ==
[2018-11-06 03:18] VITALS: BP 113/71; PULSE 88; TEMP 98.3; BMI 25.7
[2018-11-06 04:35] LABS: BASO % 0.8 % (0-2.0); EOS % 2.3 % (0-4.5); HEMATOCRIT 38.6 % (32.4-45.2); HEMOGLOBIN 13.2 GM/dL (10.7-15.3); LYMPH % 47.6 % (8-40); MCH 33.8 pg (25.7-33.7); MCHC 34.2 g/dl (32.0-36.0); MEAN CELL VOLUME 98.9 fl (80-96); MEAN PLT VOLUME 10.2 fl (7.5-11.1); MONO % 8.1 % (3.8-10.2); NEUT % 41.2 % (42.8-82.8); PLATELET COUNT 179 K/MM3 (134-434); RDW 14.1 % (11.6-15.6); WHITE BLOOD COUNT 5.6 K/mm3 (4.0-10.0)
[2018-11-06 04:38] LABS: URINE APPEARANCE CLEAR; URINE BILIRUBIN NEGATIVE (<2.0 mg/dL); URINE COLOR LTYELLOW; URINE GLUCOSE (UA) NEGATIVE (NEGATIVE); URINE KETONE NEGATIVE (NEGATIVE); URINE LEUK ESTERASE 2+ (NEGATIVE); URINE NITRITE NEGATIVE (NEGATIVE); URINE PROTEIN NEGATIVE (NEGATIVE); URINE UROBILINOGEN NEGATIVE mg/dL (0.2-1.0)
--- NOTE | 2018-11-06 04:38 | PDOC ---
History of Present Illness - General Chief Complaint: ,Possible Stated Complaint: Requesting test History Source: Patient Exam Limitations: No Limitations - History of Present Illness Initial Comments: 11/06/18 06:23 27 yo F with no past medical history presents to the emergency department with lower abdominal pain that radiates to the lower quadrants bilaterally with associative dysuria. The pain began today and is described as a burning sensation, 10/10, without aggravating or relieving factors. She was seen here 2 weeks ago for a UTI and did not take the antibiotics as prescribed. Per the patient, she states she has concerns for possible and vaginal spotting. She is on day 3 of her period. She denies the following: fever, chills , nausea, vomiting, chest pain, SOB, hematuria, vaginal discharge, diarrhea, hematochezia, and leg pain/swelling. Pmhx: Refer to above Shx: None Meds: None Allergies: NKDA Social: Denies tobacco, alcohol, and substance abuse. Past History - Past Medical History Allergies/Adverse Reactions: Allergies Allergy/AdvReac Type Severity Reaction Status Date / Time No Known Allergies Allergy Verified 11/06/18 06:08 Home Medications: Ambulatory Orders Sulfamethoxazole/Trimethoprim [Bactrim Ds -] 1 tab PO BID #6 tablet 11/06/18 metroNIDAZOLE [Flagyl -] 500 mg PO BID #14 tablet 11/09/18 Asthma: No Cancer: No Cardiac Disorders: No COPD: No CHF: No Diabetes: No HTN: No Seizures: No Thyroid Disease: No - Immunization History Immunization Up to Date: Yes - Suicide/Smoking/Psychosocial Hx Smoking Status: No Smoking History: Current some day smoker Have you smoked in the past 12 months: No Number of Cigarettes Smoked Daily: 2 Information on smoking cessation initiated: No 'Breaking Loose' booklet given: 03/03/16 Hx Alcohol Use: No Drug/Substance Use Hx: No Substance Use Type: None Hx Substance Use Treatment: Yes (nEW fOCUS) Review of Systems - Review of Systems Able to Perform ROS?: Yes Is the patient limited Comoran proficient: No Constitutional: No: Chills, Diaphoresis, Fever, Weakness HEENTM: No: Eye Pain, Recent change in vision, Ear Pain, Nose Pain, Throat Pain , Mouth Pain Respiratory: No: Cough, Shortness of Breath, SOB with Exertion, Hemoptysis Cardiac (ROS): No: Chest Pain, Lightheadedness, Palpitations, Syncope, Chest Tightness ABD/GI: Yes: Abdominal cramping. No: Constipated, Diarrhea, Nausea, Poor Appetite, Poor Fluid Intake, Rectal Bleeding, Vomiting, Tarry Stools : Yes: Burning, Dysuria. No: Hematuria, Urgency Musculoskeletal: No: Back Pain, Joint Pain, Neck Pain Integumentary: No: Lesions, Lumps, Rash Neurological: No: Headache, Numbness, Tremors, Weakness, Ataxia, Dizziness Psychiatric: No: Stressors Endocrine: No: Unexplained Weight Gain Hematologic/Lymphatic: No: Anemia *Physical Exam - Vital Signs Last Vital Signs Temp Pulse Resp BP Pulse Ox 98.3 F 88 18 113/71 100 11/06/18 03:16 11/06/18 03:16 11/06/18 03:16 11/06/18 03:16 11/06/18 03:16 - Physical Exam General Appearance: Yes: Nourished, Appropriately Dressed. No: Apparent Distress, Alcohol on Breath, Intoxicated HEENT: positive: EOMI, FAROOQ, Normal Voice, Symmetrical. negative: Pale Conjunctivae, Scleral Icterus (R), Scleral Icterus (L), Muffled/Hoarse voice Neck: positive: Trachea midline. negative: Tender, Lymphadenopathy (R), Lymphadenopathy (L), Tender lateral, Tender midline Respiratory/Chest: positive: Lungs Clear, Normal Breath Sounds. negative: Chest Tender, Respiratory Distress, Accessory Muscle Use, Paradoxal Breathing, Crackles, Rales, Rhonchi, Stridor, Wheezing Cardiovascular: positive: Regular Rhythm, Regular Rate, S1, S2. negative: Systolic Murmur Female Pelvic Exam: positive: normal external exam, cervical os closed, normal adnexa, other (foreign body consistent of paper towel left in the vaginal vault. residual blood in the vault. no CMT. no adnexal tenderness. ). negative : CMT, discharge, adnexal tenderness Gastrointestinal/Abdominal: positive: Normal Bowel Sounds, Tender (lower abdominal pain midline. ). negative: Flat, Soft, Distended Lymphatic: negative: Adenopathy Musculoskeletal: positive: Normal Inspection, CVA Tenderness. negative: Vertebral Tenderness Extremity: positive: Normal Capillary Refill, Normal Inspection, Normal Range of Motion. negative: Tender Integumentary: positive: Normal Color, Dry, Warm Neurologic: positive: coremaking supervisor II-XII NML intact, Fully Oriented, Alert, Normal Mood/ Affect, Normal Response, Motor Strength 5/5 Moderate Sedation - Procedure Monitoring Vital Signs: Procedure Monitoring Vital Signs Temperature 98.3 F 11/06/18 03:16 Pulse Rate 88 11/06/18 03:16 Respiratory Rate 18 11/06/18 03:16 Blood Pressure 113/71 11/06/18 03:16 O2 Sat by Pulse Oximetry (%) 100 11/06/18 03:16 ED Treatment Course - LABORATORY CBC & Chemistry Diagram: 11/06/18 04:16 11/06/18 04:16 Medical Decision Making - Medical Decision Making 27 yo F with no past medical history presents to the emergency department with lower abdominal pain that radiates to the lower quadrants bilaterally with associative dysuria. Initial vitals: Initial Vital Signs Temp Pulse Resp BP Pulse Ox 98.3 F 88 18 113/71 100 11/06/18 03:16 11/06/18 03:16 11/06/18 03:16 11/06/18 03:16 11/06/18 03:16 Work up: ddx: pyelo, nephrolithiasis vs uti vs vs STD pelvic exam had the following: foreign body (paper towels) covered with blood that the patient states was there for 1-2 days. explained to the patient the dangers of this practice and gave her women's health menstrual pads. given abx for UTI treatment which is positive urine (bactrim given). Dispo: Discharge *DC/Admit/Observation/Transfer Diagnosis at time of Disposition: UTI (urinary tract infection) Qualifiers: Urinary tract infection type: site unspecified Hematuria presence: without hematuria Qualified Code(s): N39.0 - Urinary tract infection, site not specified - Discharge Dispostion Disposition: HOME Decision to Admit order: No - Prescriptions Prescriptions: metroNIDAZOLE [Flagyl -] 500 mg PO BID #14 tablet Sulfamethoxazole/Trimethoprim [Bactrim Ds -] 1 tab PO BID #6 tablet - Referrals Referrals: [facility] [Provider Group] - Patient Instructions Printed Discharge Instructions: DI for Urinary Tract Infection (UTI) Additional Instructions: you were seen for the evaluation of your status and lower abdominal pain. it was found on your urine that you have an urinary tract infection. please take the antibiotics prescribed to you as directed. in addition, please use the vaginal pads provided to you for periods. it can be dangerous to keep foreign bodies in the vaginal wall for more than 24 hours as it can become infected. please follow up with your primary medical doctor or the one referred to you within the next 72 hours after discharge. Please return to the emergency department if you have worsening pain or new concerning symptoms such as foul vaginal discharge, fevers/chills, and nausea/vomiting that is uncontrollable. thank you. - Post Discharge Activity
[2018-11-06 04:40] LABS: HCG,QUALITATIVE URINE Negative
[2018-11-06 04:42] LABS: EPI CELLS RARE /HPF (FEW); URINE HYALINE CAST 1 /lpf; URINE MUCUS RARE
[2018-11-06 04:56] LABS: ALBUMIN 3.3 g/dl (3.4-5.0); ALK PHOS 73 U/L (45-117); ANION GAP 7 MMOL/L (8-16); BILIRUBIN,TOTAL 0.3 mg/dL (0.2-1); BLOOD UREA NITROGEN 14 mg/dL (7-18); CALCIUM 8.3 mg/dL (8.5-10.1); CHLORIDE 107 mmol/L (98-107); CO2 25 mmol/L (21-32); CREATININE 0.7 mg/dL (0.55-1.3); GLUCOSE,RANDOM 88 mg/dL (74-106); POTASSIUM 3.9 mmol/L (3.5-5.1); SGOT/AST 34 U/L (15-37); SGPT/ALT 62 U/L (13-61); SODIUM 139 mmol/L (136-145); TOT PROT 6.3 g/dl (6.4-8.2)
--- NOTE | 2018-11-06 06:08 | PDOC ---
Attending Attestation - Resident Resident Name: FranciscoJacob - ED Attending Attestation I have performed the following: I have examined & evaluated the patient, The case was reviewed & discussed with the resident, I agree w/resident's findings & plan, Exceptions are as noted - HPI HPI: 11/06/18 06:05 27yo F with h/o substance abuse, recently seen in ed for syncope found to have a uti, did not fill the prescription. no f/c no n/v co vaginal irritation, dc and urinary complaints. pt states she is currently menstruating, was unsure if she could be . - Physicial Exam PE: 11/06/18 06:06 awake alert lungs clear bilaterally heart rrr nomrg abd soft nt nd. ext wwp nuero alert oriented x 3. - Medical Decision Making 11/06/18 06:07 differential uti, pyelo , pid ovarian pathlogy such as cyst pelvic exam with foreign body, paper towl in vag vault. malodorous. plan treat with absx for uti, bactrim cultures sent. dc home. no cmt no adnexal tenderness.
--- NOTE | 2018-11-06 09:48 | EKG ---
Test Reason : Blood Pressure : / mmHG Vent. Rate : 060 BPM Atrial Rate : 060 BPM P-R Int : 132 ms QRS Dur : 084 ms QT Int : 378 ms P-R-T Axes : 042 070 044 degrees QTc Int : 378 ms NORMAL SINUS RHYTHM SEPTAL INFARCT , AGE UNDETERMINED ABNORMAL ECG WHEN COMPARED WITH ECG OF 20-OCT-2018 09:13, NO SIGNIFICANT CHANGE WAS FOUND Confirmed by HONEY COLORADO MD ([id number]) on 11/06/2018 9:48:10 AM Referred By: Confirmed By:HONEY [place]ORADO MD
== END 2018-11-06 06:24 | disposition home or self-care (01) ==
LOC: JER 03:04
DX: N39.0 Urinary tract infection, site not specified (principal); F17.210 Nicotine dependence, cigarettes, uncomplicated
CPT/HCPCS: 36415; 80053; 81003; 81015; 83690; 84703; 85025; 87086; 87491; 87591; 87661; 93005; 93010; 99283-25

== ENCOUNTER 2018-11-22 04:05 | Emergency (ER) | payer OTHER ==
[2018-11-22 04:23] VITALS: BP 138/72; PULSE 88; TEMP 97.8; BMI 23.1
--- NOTE | 2018-11-22 05:09 | PDOC ---
History of Present Illness - General History Source: Patient Exam Limitations: No Limitations <Ariel,Stephanie - Last Filed: 11/22/18 05:03> <Erika Sauer - Last Filed: 11/22/18 23:08> - General Chief Complaint: Weakness Stated Complaint: WEAKNESS Time Seen by Provider: 11/22/18 04:43 Past History - Past Medical History Asthma: No Cancer: No Cardiac Disorders: No COPD: No CHF: No Diabetes: No HTN: No Seizures: No Thyroid Disease: No - Immunization History Immunization Up to Date: Yes - Suicide/Smoking/Psychosocial Hx Smoking Status: No Smoking History: Never smoked Have you smoked in the past 12 months: No Number of Cigarettes Smoked Daily: 2 Information on smoking cessation initiated: No 'Breaking Loose' booklet given: 03/03/16 Hx Alcohol Use: No Drug/Substance Use Hx: No Substance Use Type: None Hx Substance Use Treatment: Yes (nEW fOCUS) <ArielStephanie [email or web address] - Last Filed: 11/22/18 05:03> <Erika Sauer - Last Filed: 11/22/18 23:08> - Past Medical History Allergies/Adverse Reactions: Allergies Allergy/AdvReac Type Severity Reaction Status Date / Time No Known Allergies Allergy Verified 11/22/18 04:12 Home Medications: Ambulatory Orders NK [No Known Home Medication] 11/22/18 *Physical Exam - Vital Signs Last Vital Signs Temp Pulse Resp BP Pulse Ox 97.8 F 88 18 138/72 98 11/22/18 04:12 11/22/18 04:12 11/22/18 04:12 11/22/18 04:12 11/22/18 04:12 - Physical Exam General Appearance: No: Apparent Distress Respiratory/Chest: positive: Lungs Clear, Normal Breath Sounds. negative: Respiratory Distress Cardiovascular: positive: Regular Rhythm, Regular Rate, S1, S2. negative: Murmur Gastrointestinal/Abdominal: positive: Normal Bowel Sounds, Soft. negative: Tender, Distended, Guarding, Rebound Extremity: positive: Other (+cracked, dry skin along R heel). negative: Pedal Edema, Swelling Integumentary: positive: Normal Color Neurologic: positive: Alert <Stephanie George - Last Filed: 11/22/18 05:03> - Vital Signs Last Vital Signs Temp Pulse Resp BP Pulse Ox 97.8 F 88 18 138/72 98 11/22/18 04:12 11/22/18 04:12 11/22/18 04:12 11/22/18 04:12 11/22/18 04:12 <Erika Sauer - Last Filed: 11/22/18 23:08> Moderate Sedation - Procedure Monitoring Vital Signs: Procedure Monitoring Vital Signs Temperature 97.8 F 11/22/18 04:12 Pulse Rate 88 11/22/18 04:12 Respiratory Rate 18 11/22/18 04:12 Blood Pressure 138/72 11/22/18 04:12 O2 Sat by Pulse Oximetry (%) 98 11/22/18 04:12 <Stephanie George - Last Filed: 11/22/18 05:03> - Procedure Monitoring Vital Signs: Procedure Monitoring Vital Signs Temperature 97.8 F 11/22/18 04:12 Pulse Rate 88 11/22/18 04:12 Respiratory Rate 18 11/22/18 04:12 Blood Pressure 138/72 11/22/18 04:12 O2 Sat by Pulse Oximetry (%) 98 11/22/18 04:12 <Erika Sauer - Last Filed: 11/22/18 23:08> Medical Decision Making - Medical Decision Making 27 y/o F hx of polysubstance abuse presents to ED stating she was initially feeling a bit fatigued and weak, but now feels fine and would like to go home, but requesting a sandwich before going. Also requesting to get some Betadine for the cracked skin on her R heel as it helps. Denies fever, sob, cp, abd pain , n/v/d, urinary complaints. Stable for d/c 11/22/18 05:04 <Stephanie George - Last Filed: 11/22/18 05:03> - Medical Decision Making The patient was seen and evaluated in conjunction with midlevel provider under my direct supervision, ancillary studies were reviewed. I agree with the plan as outlined by MARIA DOLORES George. HPI as outlined. 11/22/18 23:08 <Erika Sauer - Last Filed: 11/22/18 23:08> *DC/Admit/Observation/Transfer - Discharge Dispostion Decision to Admit order: No <Stephanie George - Last Filed: 11/22/18 05:03> <Erika Sauer - Last Filed: 11/22/18 23:08> Diagnosis at time of Disposition: Fatigue Qualifiers: Fatigue type: unspecified Qualified Code(s): R53.83 - Other fatigue - Discharge Dispostion Disposition: HOME Condition at time of disposition: Stable
== END 2018-11-22 05:00 | disposition home or self-care (01) ==
LOC: JER 04:05
DX: R53.83 Other fatigue (principal)
CPT/HCPCS: 99281-25

== ENCOUNTER 2019-12-17 04:10 | Emergency (ER) | payer OTHER ==
[2019-12-17 06:20] VITALS: BMI 25.0
--- NOTE | 2019-12-17 07:47 | PDOC ---
History of Present Illness - General Chief Complaint: Pain Stated Complaint: ABDOMINAL PAIN, ?? WEEKS Time Seen by Provider: 12/17/19 07:23 History Source: Patient Exam Limitations: No Limitations - History of Present Illness Initial Comments: Hal Maxwell is a 29 yo F w a hx of schizophrenia and polysubstance abuse who presents to the [facility] w dysuria, lower abdominal pain, and abnormal vagina discharge. She states white pus has been coming out of her vagina and she believes she has an infection. She also endorses midline cervical neck pain which she thinks might have occurred secondary to a fall last night. She denies any sensory or motor weaknesses. Denies fevers, chills, chest pain, SOB, IVDU, SI or HI, nausea, vomiting, diarrha, or constipation. PCP: Byron Nieves PSH: None reported Social Hx: Endorses occasional cocaine usage as well as PCP Allergies: NKA, NKDA Past History - Past Medical History Allergies/Adverse Reactions: Allergies Allergy/AdvReac Type Severity Reaction Status Date / Time No Known Allergies Allergy Verified 11/22/18 04:12 Home Medications: Ambulatory Orders Doxycycline Hyclate 100 mg PO BID 14 Days #28 tablet 12/17/19 Metronidazole 500 mg PO BID 5 Days #10 tablet 12/17/19 Asthma: No Cancer: No Cardiac Disorders: No COPD: No CHF: No Diabetes: No HTN: No Seizures: No Thyroid Disease: No - Immunization History Td Vaccination: Yes TDAP Vaccination: Yes Immunization Up to Date: Yes - Psycho Social/Smoking Cessation Hx Smoking Status: No Smoking History: Never smoked Have you smoked in the past 12 months: No Number of Cigarettes Smoked Daily: 2 Information on smoking cessation initiated: No 'Breaking Loose' booklet given: 03/03/16 Hx Alcohol Use: No Drug/Substance Use Hx: No Substance Use Type: None Hx Substance Use Treatment: Yes (nEW fOCUS) Review of Systems - Review of Systems Able to Perform ROS?: Yes Comments:: CONSTITUTIONAL: Absent: fever, no chills, no fatigue EYES: Absent: visual changes ENT: Absent: ear pain, no sore throat CARDIOVASCULAR: Absent: chest pain, no palpitations RESPIRATORY: Absent: cough, no SOB GI: Present: suprapubic abdominal pain Absent: no nausea, no vomiting, no constipation, no diarrhea GENITOURINARY: Present: Dysuria Absent: no frequency, no hematuria MUSKULOSKELETAL: Absent: back pain, no arthralgia, no myalgia SKIN: Absent: rash NEURO: Absent: headache *Physical Exam - Vital Signs Last Vital Signs Temp Pulse Resp BP Pulse Ox 98.3 F 81 18 102/61 98 12/17/19 04:36 12/17/19 04:36 12/17/19 04:36 12/17/19 04:36 12/17/19 04:36 - Physical Exam GENERAL: Well-appearing, well-nourished. No apparent distress. HEENT: Normocephalic, atraumatic. PERRL, EOM intact. NECK: There is midline C3/C4 TTP CARDIOVASCULAR: Normal S1, S2. Regular rate and rhythm. PULMONARY: No evidence of respiratory distress. Lungs clear to auscultation bilaterally. No wheezing, rales or rhonchi. ABDOMEN: Soft, non-distended, non-tender. PELVIC: There are cauliflower lesions on the external Labi Majora. The vaginal vault has purulent thick white discharge. There is a significant amount of CMT. There is no adnexal TTP. There are no herpetic appearing lesions. EXTREMITIES: Normal ROM in all four extremities. No gross deformities. SKIN: Warm, dry. No rash NEUROLOGICAL: No focal neurological deficits. ED Treatment Course - RADIOLOGY Radiology Studies Ordered: Category Date Time Status CERVICAL SPINE CT W/O CONTR [CT] Stat CT Scan 12/17/19 07:[address] WITHOUT CONTRAST [CT] Stat CT Scan 12/17/19 07:17 Ordered Medical Decision Making - Medical Decision Making Hal Maxwell is a 29 yo F w a hx of schizophrenia and polysubstance abuse who presents to the [facility] w dysuria, lower abdominal pain, and abnormal vagina discharge. She states white pus has been coming out of her vagina and she believes she has an infection. She also endorses midline cervical neck pain which she thinks might have occurred secondary to a fall last night. She denies any sensory or motor weaknesses. Vital Signs Temp Pulse Resp BP Pulse Ox 97.9 F 63 18 110/52 L 100 12/17/19 10:06 12/17/19 10:06 12/17/19 10:06 12/17/19 10:06 12/17/19 10:06 DDx IBNLT: PID - gonorrhea vs chlamydia, HSV, UTI/Pylo, brain bleed, cervical fx Cervical CT: No acute fx Head CT: No acute bleed Pelvic Exam shows heavy white purulent exudate and the patient has significant cervical motion tenderness consistent with acute cervicitis. Urine Supports infection Drug screen shows cocaine and PCP MDM: Will empirically treat patient with Ceftriaxone and azithromycin in ER to treat for PID, sending 2 week script of Ping and Celestine to her pharmacy - Patient advised not to engage in sexual activity until 1 week after completion of Abx Dispo: Home with PCP and psychiatry FU Discharge - Discharge Information Problems reviewed: Yes Clinical Impression/Diagnosis: PID (acute pelvic inflammatory disease), Drug abuse, Substance abuse, Cervicitis Condition: Improved Disposition: HOME - Admission No - Additional Discharge Information Prescriptions: Doxycycline Hyclate 100 mg PO BID 14 Days #28 tablet Metronidazole 500 mg PO BID 5 Days #10 tablet - Follow up/Referral Referrals: Byron Nieves [Non Staff, Medical] - Jd Jean Baptiste MD [Staff Physician] - - Patient Discharge Instructions Patient Printed Discharge Instructions: DI for Pelvic Inflammatory Disease Additional Instructions: Take metronidazole as prescribed. Follow-up with your psychiatrist today. Return to ED for any severe worsening symptoms or for any concerns. Print Language: WOLOF - Post Discharge Activity
[2019-12-17 08:07] LABS: PH,URINE 6.5 (5.0-8.0); URINE APPEARANCE Clear; URINE BILIRUBIN Negative (NEGATIVE); URINE COLOR Yellow; URINE GLUCOSE (UA) Negative (NEGATIVE); URINE KETONE 2+ (NEGATIVE); URINE LEUK ESTERASE Trace (NEGATIVE); URINE NITRITE Negative (NEGATIVE); URINE PROTEIN Negative (NEGATIVE); URINE UROBILINOGEN 0.2 mg/dL (0.2-1.0)
--- NOTE | 2019-12-17 08:07 | PDOC ---
Attending Attestation - Resident Resident Name: Artie Berry - ED Attending Attestation I have performed the following: I have examined & evaluated the patient, The case was reviewed & discussed with the resident, I agree w/resident's findings & plan, Exceptions are as noted - HPI HPI: 12/17/19 09:28 29 years old with past medical history significant for schizophrenia off her Risperdal denies auditory visual hallucinations denies suicidal ideation homicidal ideation presents with multiple complaints including neck pain foot pain pelvic pain foul-smelling pelvic discharge No fever no chills no chest pain no shortness of breath no nausea vomiting or diarrhea - Physicial Exam PE: 12/17/19 09:28 Vitals: Triage Vital signs reviewed General Appearance: No acute distress, well nourished well developed, Head: Atraumatic, Lungs: Clear to auscultation bilateral, good air movement bilaterally, Abdomen: Soft, non distended, normal bowel sounds, non tender to palpation Extremities: Full range of motion to all extremities, no cyanosis, clubbing, or edema Skin: Warm and dry, no rashes or lesions, no rash, no petechiae Neuro: AOX3; cranial Nerves 2-12 grossly intact, strength intact to all extremities, sensation intact to all extremities, gait normal Psych: Normal mood, normal affect - Medical Decision Making 12/17/19 09:28 History of schizophrenia we will perform pelvic exam not actively hallucinating at this time patient states she has psychiatric follow-up which she plans on going to this afternoon Discharge - Discharge Information Problems reviewed: Yes Clinical Impression/Diagnosis: PID (acute pelvic inflammatory disease) - Admission No - Additional Discharge Information Prescriptions: Doxycycline Hyclate 100 mg PO BID 14 Days #28 tablet - Follow up/Referral - Patient Discharge Instructions Patient Printed Discharge Instructions: DI for Pelvic Inflammatory Disease Additional Instructions: Take metronidazole as prescribed. Follow-up with your psychiatrist today. Return to ED for any severe worsening symptoms or for any concerns. - Post Discharge Activity
[2019-12-17 08:26] LABS: METHADONE, UR NEGATIVE ng/ml (CUTOFF=300); OPIATES, URI NEGATIVE ng/ml (CUTOFF=300); URINE AMPHETAMINES NEGATIVE ng/ml (CUTOFF=500); URINE BARBITURATES NEGATIVE ng/ml (CUTOFF=200); URINE BENZODIAZEPINES NEGATIVE ng/ml (CUTOFF=200)
[2019-12-17 08:50] LABS: COCAINE, UR POSITIVE ng/ml (CUTOFF=300); PHENCYCLIDINE,URINE POSITIVE ng/ml (CUTOFF=25)
[2019-12-17] MEDS ORDERED: AZITHROMYCIN 500 MG TABLET PO ONE (09:27)
[2019-12-17] MEDS ORDERED: AZITHROMYCIN 250 MG TABLET ONE (09:57)
[2019-12-17 10:08] VITALS: BP 110/52; PULSE 63; TEMP 97.9
[2019-12-17 12:42] LABS: URINE RBC 3.5 /hpf (0-4)
[2019-12-17 12:43] LABS: EPI CELLS 3.7 /HPF (0-5/HPF); HYALINE CASTS 27.1 /lpf (0-8); URINE BACTERIA 299.4 /hpf (NEGATIVE); URINE WBC 59.6 /hpf (0-5)
== END 2019-12-17 10:08 | disposition home or self-care (01) ==
LOC: JER 04:10
DX: N73.0 Acute parametritis and pelvic cellulitis (principal); N72 Inflammatory disease of cervix uteri; M54.2 Cervicalgia; W19.XXXA Unspecified fall, initial encounter; Y93.89 Activity, other specified; Y92.89 Other specified places as the place of occurrence of the external cause; Y99.8 Other external cause status
CPT/HCPCS: 70450-TC; 72125-TC; 80307; 81003; 87086; 96372; 99284-25